=== PATIENT | female | born 1985 | race Caucasian/White ===

== ENCOUNTER → 2017-12-26 | Outpatient (CLI) | payer OTHER ==
[2017-12-26 10:59] LABS: ABSOLUTE EOSINOPHILS # (AUTO) 0.2 10^3/uL (0.0-0.6); ABSOLUTE LYMPHOCYTES (AUTO) 1.9 10^3/uL (0.5-4.7); ABSOLUTE MONOCYTES (AUTO) 0.6 10^3/uL (0.1-1.4); ABSOLUTE NEUT (AUTO) 3.4 10^3/uL (1.7-8.2); BASOPHILS % (AUTO) 0.8 % (0-2); EOSINOPHILS % (AUTO) 3.1 % (0-6); HEMATOCRIT 35.8 % (36.0-47.0); HEMOGLOBIN 12.1 g/dL (12.0-15.5); LYMPHOCYTES % (AUTO) 30.4 % (13-45); MEAN CORPUSCULAR HEMOGLOBIN 29.6 pg (27.0-33.4); MEAN CORPUSCULAR HGB CONC 33.8 g/dL (32.0-36.0); MEAN CORPUSCULAR VOLUME 88 fl (80-97); MONOCYTES % (AUTO) 9.6 % (3-13); PLATELET COUNT 227 10^3/uL (150-450); RED BLOOD COUNT 4.09 10^6/uL (3.72-5.28); RED CELL DISTRIBUTION WIDTH 13.6 % (11.5-14.0); SEGMENTED NEUTROPHILS % (AUTO) 56.1 % (42-78); TOTAL CELLS COUNTED % (AUTO) 100 %; WHITE BLOOD COUNT 6.1 10^3/uL (4.0-10.5)
[2017-12-26 11:20] LABS: ALANINE AMINOTRANSFERASE 40 U/L (9-52); ALBUMIN 4.2 g/dL (3.5-5.0); ALKALINE PHOSPHATASE 67 U/L (38-126); ANION GAP 9 (5-19); ASPARTATE AMINO TRANSFERASE 30 U/L (14-36); BILIRUBIN,DIRECT 0.2 mg/dL (0.0-0.4); BILIRUBIN,TOTAL 0.5 mg/dL (0.2-1.3); BLOOD UREA NITROGEN 7 mg/dL (7-20); CALCIUM 9.7 mg/dL (8.4-10.2); CARBON DIOXIDE 26 mmol/L (22-30); CHLORIDE 107 mmol/L (98-107); CHOLESTEROL 151.64 mg/dL (0-200); GLUCOSE 79 mg/dL (75-110); POTASSIUM 4.2 mmol/L (3.6-5.0); SODIUM 141.7 mmol/L (137-145); TOTAL PROTEIN 7.1 g/dL (6.3-8.2); TRIGLYCERIDES 49 mg/dL (<150)
[2017-12-26 11:31] LABS: DIRECT LDL 71 mg/dL (<100)
== END ==
LOC: CCC 09:08
DX: R00.0 Tachycardia, unspecified (principal); N92.4 Excessive bleeding in the premenopausal period
CPT/HCPCS: 36415; 80053; 80061; 83036; 84443; 85025

== ENCOUNTER 2018-10-29 07:27 | Emergency (ER) | payer SELFPAY ==
[2018-10-29 07:33] VITALS: BP 114/72
[2018-10-29 07:54] LABS: APPEARANCE,URINE CLOUDY; BILIRUBIN,URINE NEGATIVE (NEGATIVE); COLOR,URINE YELLOW; GLUCOSE, URINE NEGATIVE (NEGATIVE); KETONES,URINE NEGATIVE (NEGATIVE); LEUKOCYTE ESTERASE,URINE LARGE (NEGATIVE); NITRITE,URINE NEGATIVE (NEGATIVE); PROTEIN,URINE 30 mg/dL (NEGATIVE); URINE SPECIFIC GRAVITY 1.011; UROBILINOGEN,URINE NEGATIVE mg/dL (<2.0)
[2018-10-29] MEDS ORDERED: SULFAMETHOXAZOLE/TRIMETHOPRIM 800-160 MG TABLET PO ONE (08:06)
--- NOTE | 2018-10-29 08:17 | ER Document Report ---
ED General - General Chief Complaint: Urinary Problem Stated Complaint: URINATION PROBLEMS Time Seen by Provider: 10/29/18 08:04 Primary Care Provider: [facility] [NO LOCAL MD] - Follow up as needed Mode of Arrival: Ambulatory Information source: Patient, [facility] Records Notes: 32-year-old female with a history of SVT presents with dysuria, hematuria and in creased urinary frequency. Patient states that one week prior to arrival she was experiencing urinary frequency. She stated that she used Azo and cranberry juice and felt better. She states this morning she woke and noticed blood after urinating. Patient denies any fever, chills, nausea, vomiting, vaginal discharge, flank pain. TRAVEL OUTSIDE OF THE [place] IN LAST 30 DAYS: No - HPI Onset: This morning Onset/Duration: Sudden Quality of pain: Burning Severity: Mild Associated symptoms: denies: Chest pain, Fever, Nausea, Vomiting, Shortness of breath Exacerbated by: Denies Relieved by: Denies Similar symptoms previously: Yes Recently seen / treated by doctor: No - Related Data Allergies/Adverse Reactions: Penicillins Allergy (Verified 10/29/18 07:29) monostat Allergy (Uncoded 10/29/18 07:29) Past Medical History - General Information source: Patient - Social History Smoking Status: Unknown if Ever Smoked Chew tobacco use (# tins/day): No Frequency of alcohol use: None Drug Abuse: None Lives with: Family Family History: Reviewed & Not Pertinent Patient has suicidal ideation: No Patient has homicidal ideation: No Renal/ Medical History: Reports: Hx Kidney Stones. Denies: Hx Peritoneal Dialysis Past Surgical History: Reports: Hx Abdominal Surgery - HERNIA REPAIR, Hx Cholecystectomy, Hx Tubal Ligation Review of Systems - Review of Systems Notes: REVIEW OF SYSTEMS: CONSTITUTIONAL : Denies fever, chills, or sweats. Denies recent illness. Denies weight loss, recent hospitalizations. EENT: Denies visual changes, eye pain. Denies sore throat, oral lesions, difficulty swallowing. CARDIOVASCULAR: Denies chest pain. Denies palpitations. Denies lower extremity edema. RESPIRATORY: Denies cough. Denies shortness of breath, wheezing. GASTROINTESTINAL: Denies abdominal pain or distention. Denies nausea, vomiting, or diarrhea. Denies blood in vomitus, stools, or per rectum. Denies black, tarry stools. Denies constipation. GENITOURINARY: + difficulty urinating, painful urination, frequency, blood in urine, denies vaginal discharge. MUSCULOSKELETAL: Denies back or neck pain or stiffness. Denies joint pain or swelling. SKIN: Denies rash, lesions or sores. HEMATOLOGIC : Denies easy bruising or bleeding. LYMPHATIC: Denies swollen glands. NEUROLOGICAL: Denies confusion or altered mental status. Denies loss of consciousness. Denies dizziness or lightheadedness. Denies headache. Denies weakness or paralysis. Denies problems difficulty with ambulation, slurred speech. Denies sensory loss, numbness, or tingling. Denies seizures. PSYCHIATRIC: Denies anxiety or stress. Denies depression, suicidal ideation, or homicidal ideation. Denies visual or auditory hallucinations. Physical Exam - Vital signs Vitals: Temp Pulse Resp BP Pulse Ox 97.9 F 81 18 114/72 99 10/29/18 07:32 10/29/18 07:32 10/29/18 07:32 10/29/18 07:32 10/29/18 07:32 - Notes Notes: PHYSICAL EXAMINATION: GENERAL: Well-appearing, well-nourished and in no acute distress. HEAD: Atraumatic, normocephalic. EYES: Pupils equal round and reactive to light, extraocular movements intact, conjunctiva are normal. ENT: Nares patent, oropharynx clear without exudates. Moist mucous membranes. NECK: Normal range of motion, supple without lymphadenopathy LUNGS: Breath sounds clear to auscultation bilaterally and equal. No wheezes rales or rhonchi. HEART: Regular rate and rhythm without murmurs ABDOMEN: Soft, nontender, nondistended abdomen. No guarding, no rebound. No masses appreciated. No CVA tenderness Female : deferred Musculoskeletal: Normal range of motion, no pitting or edema. No cyanosis. NEUROLOGICAL: Cranial nerves grossly intact. Normal speech, normal gait. Normal sensory, motor exams PSYCH: Normal mood, normal affect. SKIN: Warm, Dry, normal turgor, no rashes or lesions noted. Course - Re-evaluation Re-evalutation: 10/29/18 09:40 Laboratory 10/29/18 07:33 Urine Color YELLOW Urine Appearance CLOUDY Urine pH 7.0 Ur Specific [place] 1.011 Urine Protein 30 H Urine Glucose (UA) NEGATIVE Urine Ketones NEGATIVE Urine Blood LARGE H Urine Nitrite NEGATIVE Urine Bilirubin NEGATIVE Urine Urobilinogen NEGATIVE Ur Leukocyte Esterase LARGE H Urine WBC (Auto) >182 Urine RBC (Auto) >182 Urine WBC Clumps MANY Squamous Epi Cells Auto 2 U Non-Squamous Epis Auto 2 Urine Mucus (Auto) OCC Urine Ascorbic Acid NEGATIVE Temp Pulse Resp BP Pulse Ox 97.9 F 81 18 114/72 99 10/29/18 07:32 10/29/18 07:32 10/29/18 07:32 10/29/18 07:32 10/29/18 07:32 Patient presents with symptoms consistent with an acute cystitis. Vitals wnl. No history of fever, flank pain, or constitution symptoms to suggest ascending infection at this time. Patient is well in appearance, tolerating oral intake without difficulty. No focal abdominal tenderness to suggest acute appendicitis, biliary pathology, acute pancreatitis, tubo-ovarian abscesses, or pelvic inflammatory disease. Patient will be started on antibiotics at this time. A culture has been sent. They will be discharged with return precautions and follow-up recommendations. - Vital Signs Vital signs: Temp Pulse Resp BP Pulse Ox 97.9 F 81 18 114/72 99 10/29/18 07:32 10/29/18 07:32 10/29/18 07:32 10/29/18 07:32 10/29/18 07:32 - Laboratory Laboratory results interpreted by me: 10/29/18 07:33 Urine Protein 30 H Urine Blood LARGE H Ur Leukocyte Esterase LARGE H Discharge - Discharge Clinical Impression: UTI (urinary tract infection) Qualifiers: Urinary tract infection type: site unspecified Hematuria presence: with hematuria Qualified Code(s): N39.0 - Urinary tract infection, site not specified Condition: Good Disposition: HOME, SELF-CARE Instructions: Urinary Tract Infection ([facility]) Additional Instructions: Your urine shows findings consistent with a urinary tract infection. Please take all the antibiotics as directed even if your symptoms have improved. Please follow-up with your primary care physician as needed. Return to emergency room if you develop fever >101F, persistent vomiting, become lethargic, have severe pain in your sides, or any other symptoms that are concerning to you. Prescriptions: Cephalexin Monohydrate [Keflex 500 mg Capsule] 500 mg PO Q8H 5 Days #15 capsule Sulfamethoxazole/Trimethoprim [Bactrim Ds Tablet] 1 each PO BID 7 Days #14 tablet Forms: Return to Work [facility] [NO LOCAL MD] - Follow up as needed
[2018-10-29] MEDS ORDERED: CEPHALEXIN 500 MG CAPSULE PO ONE (08:24)
== END 2018-10-29 08:30 | disposition home or self-care (01) ==
LOC: ER 07:27
DX: N39.0 Urinary tract infection, site not specified (principal); R31.0 Gross hematuria; Z87.442 Personal history of urinary calculi; Z88.0 Allergy status to penicillin; Z88.3 Allergy status to other anti-infective agents
CPT/HCPCS: 81001; 99283

== ENCOUNTER 2019-01-06 08:37 | Emergency (ER) | payer SELFPAY ==
[2019-01-06] MEDS ORDERED: NORMAL SALINE 1000 ML 1,000 ML IV ONE (09:27)
--- NOTE | 2019-01-06 09:27 | ER Document Report ---
ED General - General Chief Complaint: Urinary Problem Stated Complaint: POSSIBLE UTI Time Seen by Provider: 01/06/19 09:21 Primary Care Provider: [facility] [Provider Group] - Follow up as needed TRAVEL OUTSIDE OF THE [place] IN LAST 30 DAYS: No - HPI Patient complains to provider of: dysurea Notes: Pleasant 33-year-old female presents with signs and symptoms concerning for urinary tract infection including dysuria burning sensation 8/10 without radiation nothing makes it better or worse. Patient denies nausea vomiting or other symptoms. Patient has been treated with 3 courses of antibiotics for the last 2 months without improvement in symptoms. Denies fever chills but now has some aching back pain intermittently. Was told she had kidney stones at one point but she is not sure if she passed them or not. Patient is concerned this is been going on for so long. - Related Data Allergies/Adverse Reactions: tioconazole [Tioconazole] Allergy (Intermediate, Verified 01/06/19 08:38) Skin Redness Penicillins Allergy (Verified 01/06/19 08:38) nitrofurantoin [From Macrobid] Adverse Reaction (Verified 01/06/19 08:38) Nausea nitrofurantoin macrocrystalline [From Macrobid] Adverse Reaction (Verified 01/06/19 08:38) Nausea monostat Allergy (Uncoded 10/29/18 11:22) Past Medical History - Social History Smoking Status: Unknown if Ever Smoked Family History: Malignancy, CAD, DM, Hyperlipidemia, Hypertension, Reviewed & Not Pertinent - Past Medical History Cardiac Medical History: Denies: Hx Heart Attack, Hx Hypertension Pulmonary Medical History: Reports: Hx Bronchitis - chronic Denies: Hx Asthma Neurological Medical History: Denies: Hx Cerebrovascular Accident, Hx Seizures Endocrine Medical History: Reports: Hx Diabetes Mellitus Type 2 - borderline Renal/ Medical History: Reports: Hx Kidney Stones. Denies: Hx Peritoneal Dialysis GI Medical History: Reports: Hx Hiatal Hernia. Denies: Hx Hepatitis, Hx Ulcer Psychiatric Medical History: Reports: Hx Depression - POST Infectious Medical History: Denies: Hx Hepatitis Past Surgical History: Reports: Hx Abdominal Surgery - HERNIA REPAIR, Hx Cardiac Surgery - ABLASION X 2, Hx Cholecystectomy, Hx Tubal Ligation, Hx Umbilical Hernia. Denies: Hx Mastectomy, Hx Open Heart Surgery, Hx Pacemaker - Immunizations Immunizations up to date: Yes Hx Diphtheria, Pertussis, Tetanus Vaccination: No - 2010 Hx Pneumococcal Vaccination: 04/21/12 Review of Systems - Review of Systems Notes: REVIEW OF SYSTEMS: CONSTITUTIONAL: -fevers, -chills EENT: -eye pain, -difficulty swallowing, -nasal congestion CARDIOVASCULAR: -chest pain, -syncope. RESPIRATORY: -cough, -SOB GASTROINTESTINAL: -abdominal pain, -nausea, -vomiting, -diarrhea GENITOURINARY: positive dysuria, -hematuria MUSCULOSKELETAL: -back pain, -neck pain SKIN: -rash or skin lesions. HEMATOLOGIC: -easy bruising or bleeding. LYMPHATIC: -swollen, enlarged glands. NEUROLOGICAL: -altered mental status or loss of consciousness, -headache, - neurologic symptoms PSYCHIATRIC: -anxiety, -depression. ALL OTHER SYSTEMS REVIEWED AND NEGATIVE. Physical Exam - Vital signs Vitals: Temp Pulse Resp BP Pulse Ox 99.5 F 72 16 111/75 100 01/06/19 09:36 01/06/19 09:36 01/06/19 09:36 01/06/19 09:36 01/06/19 09:36 - Notes Notes: PHYSICAL EXAMINATION: GENERAL: Well-appearing, well-nourished and in no acute distress. HEAD: Atraumatic, normocephalic. EYES: Pupils equal round and reactive to light, extraocular movements intact, sclera anicteric, conjunctiva are normal. ENT: nares patent, oropharynx clear without exudates. Moist mucous membranes. NECK: Normal range of motion, supple without lymphadenopathy LUNGS: Breath sounds clear to auscultation bilaterally and equal. No wheezes rales or rhonchi. HEART: Regular rate and rhythm without murmurs ABDOMEN: Soft, nontender, normoactive bowel sounds. No guarding, no rebound. No masses appreciated. EXTREMITIES: Normal range of motion, no pitting or edema. No cyanosis. NEUROLOGICAL: Cranial nerves grossly intact. Normal speech, normal gait. Normal sensory and motor exams. PSYCH: Normal mood, normal affect. SKIN: Warm, Dry, normal turgor, no rashes or lesions noted. Course - Re-evaluation Re-evalutation: 01/06/19 09:29 Well-appearing female stable vital signs within normal limits no acute distress. Presents with signs and symptoms concerning of urinary tract infection. This is been a protracted illness. Will initiate extensive lab work-up and CAT scan. 01/06/19 11:19 Well-appearing female no acute distress stable vital signs within normal limits. Extensive lab work-up unremarkable, no signs of infection, urine shows a culture and GC screen. CT abdomen pelvis performed shows no acute intra- abdominal process all findings. Patient will be discharged home improved follow-up PCP. given strict return precautions - Vital Signs Vital signs: Temp Pulse Resp BP Pulse Ox 98.1 F 63 18 95/53 L 100 01/06/19 11:32 01/06/19 11:32 01/06/19 11:32 01/06/19 11:32 01/06/19 11:32 - Laboratory Result Diagrams: 01/06/19 09:45 01/06/19 09:45 Laboratory results interpreted by me: 01/06/19 09:07 Urine Urobilinogen 2.0 H Ur Leukocyte Esterase TRACE H Discharge - Discharge Clinical Impression: Flank pain Condition: Stable Disposition: HOME, SELF-CARE Instructions: Abdominal Pain ([facility]) Additional Instructions: Call PCP tomorrow Referrals: [facility] [Provider Group] - Follow up as needed
[2019-01-06 09:36] LABS: APPEARANCE,URINE SLIGHTLY-CLOUDY; BILIRUBIN,URINE NEGATIVE (NEGATIVE); COLOR,URINE YELLOW; GLUCOSE, URINE NEGATIVE (NEGATIVE); KETONES,URINE NEGATIVE (NEGATIVE); LEUKOCYTE ESTERASE,URINE TRACE (NEGATIVE); NITRITE,URINE NEGATIVE (NEGATIVE); PROTEIN,URINE NEGATIVE (NEGATIVE); URINE SPECIFIC GRAVITY 1.011
[2019-01-06] MEDS ORDERED: ACETAMINOPHEN 325 MG TABLET PO ONE (10:09)
[2019-01-06 10:11] LABS: ABSOLUTE EOSINOPHILS # (AUTO) 0.1 10^3/uL (0.0-0.6); ABSOLUTE LYMPHOCYTES (AUTO) 1.9 10^3/uL (0.5-4.7); ABSOLUTE MONOCYTES (AUTO) 0.5 10^3/uL (0.1-1.4); ABSOLUTE NEUT (AUTO) 4.5 10^3/uL (1.7-8.2); BASOPHILS % (AUTO) 0.6 % (0-2); EOSINOPHILS % (AUTO) 0.9 % (0-6); HEMATOCRIT 38.5 % (36.0-47.0); HEMOGLOBIN 13.2 g/dL (12.0-15.5); LYMPHOCYTES % (AUTO) 27.6 % (13-45); MEAN CORPUSCULAR HEMOGLOBIN 29.4 pg (27.0-33.4); MEAN CORPUSCULAR HGB CONC 34.1 g/dL (32.0-36.0); MEAN CORPUSCULAR VOLUME 86 fl (80-97); MONOCYTES % (AUTO) 6.5 % (3-13); PLATELET COUNT 265 10^3/uL (150-450); RED BLOOD COUNT 4.47 10^6/uL (3.72-5.28); RED CELL DISTRIBUTION WIDTH 13.7 % (11.5-14.0); SEGMENTED NEUTROPHILS % (AUTO) 64.4 % (42-78); TOTAL CELLS COUNTED % (AUTO) 100 %
[2019-01-06 10:23] LABS: ANION GAP 8 (5-19); BLOOD UREA NITROGEN 7 mg/dL (7-20); CALCIUM 9.8 mg/dL (8.4-10.2); CARBON DIOXIDE 26 mmol/L (22-30); CHLORIDE 104 mmol/L (98-107); GLUCOSE 81 mg/dL (75-110); POTASSIUM 3.9 mmol/L (3.6-5.0)
--- NOTE | 2019-01-06 10:59 | RADIOLOGY REPORT (SQ) ---
EXAM DESCRIPTION: CT ABD/PELVIS WITH IV ONLY COMPLETED DATE/TIME: 01/06/2019 10:37 am REASON FOR STUDY: flank pain, abdominal pain COMPARISON: 11/09/2018 TECHNIQUE: CT scan of the abdomen and pelvis performed using helical scanning technique with dynamic intravenous contrast injection. No oral contrast. Images reviewed with lung, soft tissue, and bone windows. Reconstructed coronal and sagittal MPR images reviewed. Delayed images for evaluation of the urinary system also acquired. All images stored on PACS. All CT scanners at this facility use dose modulation, iterative reconstruction, and/or weight based d osing when appropriate to reduce radiation dose to as low as reasonably achievable (ALARA). [facility]: Dose Right [facility]: CareDose [facility]: Dose Right [facility]: Teradose 4D [facility]: SnapMyAd CONTRAST TYPE AND DOSE: contrast/concentration: Isovue 350.00 mg/ml; Total Contrast Delivered: 78.0 ml; Total Saline Delivered: 61.8 ml RENAL FUNCTION: None required. The patient is less than 50 years old. RADIATION DOSE: CT Rad equipment meets quality standard of care and radiation dose reduction techniq ues were employed. CTDIvol: 7.2 - 10.0 mGy. DLP: 897 mGy-cm.. LIMITATIONS: None. FINDINGS: LOWER CHEST: No significant findings. No nodules or infiltrates. LIVER: Normal size. No masses. No dilated ducts. SPLEEN: Normal size. No focal lesions. PANCREAS: No masses. No significant calcifications. No adjacent inflammation or peripancreatic fluid collections. Pancreatic duct not dilated. GALLBLADDER: Surgically absent. ADRENAL GLANDS: No significant masses or asymmetry. RIGHT KIDNEY AND URETER: No solid masses. No significant calcifications. No hydronephrosis or hyd roureter. LEFT KIDNEY AND URETER: No solid masses. No significant calcifications. No hydronephrosis or hydr oureter. AORTA AND VESSELS: No aneurysm. No dissection. Renal arteries, SMA, celiac without stenosis. RETROPERITONEUM: No retroperitoneal adenopathy, hemorrhage or masses. BOWEL AND PERITONEAL CAVITY: No masses or inflammatory changes. No free fluid or peritoneal masses. APPENDIX: Normal. PELVIS: No mass. No free fluid. Normal bladder. ABDOMINAL WALL: No masses. No hernias. BONES: No significant or acute findings. OTHER: No other significant finding. IMPRESSION: NO SIGNIFICANT OR ACUTE FINDING IN THE ABDOMEN OR PELVIS ON CT SCAN WITH IV CONTRAST. TECHNICAL DOCUMENTATION: JOB ID: [id number] Quality ID # [id number]: Final reports with documentation of one or more dose reduction techniques (e.g., Au tomated exposure control, adjustment of the mA and/or kV according to patient size, use of iterative reconstruction technique) 2010 [employer]- All Rights Reserved Reading location - IP/workstation name: [email or web address]
[2019-01-06 11:35] VITALS: BP 95/53
[2019-01-06 12:53] LABS: CHLAM PCR NOT DETECTED (NOT DETECT)
== END 2019-01-06 11:48 | disposition home or self-care (01) ==
LOC: ER 08:37
DX: R10.9 Unspecified abdominal pain (principal); R39.198 Other difficulties with micturition; R30.0 Dysuria; E11.9 Type 2 diabetes mellitus without complications
CPT/HCPCS: 36415; 85025; 81025; 80048; 81001; 87491; 87591; 74177; J7030; 87086

== ENCOUNTER 2019-02-09 08:31 | Emergency (ER) | payer SELFPAY ==
[2019-02-09 08:53] VITALS: BP 103/72
[2019-02-09] MEDS ORDERED: PREDNISONE 20 MG TABLET PO ONE (09:20)
[2019-02-09] MEDS ORDERED: FAMOTIDINE 20 MG TABLET PO ONE (09:20)
[2019-02-09] MEDS ORDERED: DIPHENHYDRAMINE HCL 50 MG CAPSULE PO ONE (09:20)
--- NOTE | 2019-02-09 09:23 | ER Document Report ---
HPI - HPI Time Seen by Provider: 02/09/19 09:11 Notes: Patient is a 33-year-old female presenting to the emergency department with concerns for possible allergic reaction. Patient reports 2 days ago she broke out in a fine rash that is very itchy. She states she has had a similar episode happened in the past at which time she had to be treated with epinephrine at [facility]. She states that this time it is not as severe, she has no throat swelling or difficulty swallowing. She just reports that she has been taking Benadryl without relief. She does report taking some leftover prednisone that she had for her sciatic pain, she does not know what dose she took. She did not take that today. - REPRODUCTIVE Reproductive: DENIES: : Past Medical History - General Information source: Patient - Social History Smoking Status: Never Smoker Frequency of alcohol use: None Drug Abuse: None Family History: Malignancy, CAD, DM, Hyperlipidemia, Hypertension, Reviewed & Not Pertinent - Past Medical History Cardiac Medical History: Denies: Hx Heart Attack, Hx Hypertension Pulmonary Medical History: Reports: Hx Bronchitis - chronic Denies: Hx Asthma Neurological Medical History: Denies: Hx Cerebrovascular Accident, Hx Seizures Endocrine Medical History: Reports: Hx Diabetes Mellitus Type 2 - borderline Renal/ Medical History: Reports: Hx Kidney Stones. Denies: Hx Peritoneal Dialysis GI Medical History: Reports: Hx Hiatal Hernia. Denies: Hx Hepatitis, Hx Ulcer Psychiatric Medical History: Reports: Hx Depression - POST Infectious Medical History: Denies: Hx Hepatitis Past Surgical History: Reports: Hx Abdominal Surgery - HERNIA REPAIR, Hx Cardiac Surgery - ABLASION X 2, Hx Cholecystectomy, Hx Tubal Ligation, Hx Umbilical Hernia. Denies: Hx Mastectomy, Hx Open Heart Surgery, Hx Pacemaker - Immunizations Immunizations up to date: Yes Hx Diphtheria, Pertussis, Tetanus Vaccination: No - 2010 Hx Pneumococcal Vaccination: 04/21/12 Vertical Provider Document - CONSTITUTIONAL Notes: PHYSICAL EXAMINATION: GENERAL: Well-appearing, well-nourished and in no acute distress. HEAD: Atraumatic, normocephalic. EYES: Pupils equal round extraocular movements intact, conjunctiva are normal. ENT: Nares patent, oropharynx clear, airway patent. NECK: Normal range of motion LUNGS: No respiratory distress, lung sounds clear and equal bilaterally. Musculoskeletal: Normal range of motion NEUROLOGICAL: Normal speech, normal gait. PSYCH: Normal mood, normal affect. SKIN: Fine lacy rash to patient's bilateral arms, bilateral legs and neck. No obvious hives. - INFECTION CONTROL TRAVEL OUTSIDE OF THE [place] IN LAST 30 DAYS: No Course - Re-evaluation Re-evalutation: Patient presenting with possible mild allergic reaction. No anaphylaxis. Will give patient a dose of Pepcid, prednisone and Benadryl, will monitor to ensure that this does not rapidly progressed with plans to discharge home with prescriptions for Pepcid, prednisone and an EpiPen this patient reports she does not have one. - Vital Signs Vital signs: Temp Pulse Resp BP Pulse Ox 98.3 F 72 16 103/72 100 02/09/19 08:51 02/09/19 08:51 02/09/19 08:51 02/09/19 08:51 02/09/19 08:51 Discharge - Discharge Clinical Impression: Allergic reaction Qualifiers: Encounter type: initial encounter Qualified Code(s): T78.40XA - Allergy, unspecified, initial encounter Condition: Stable Disposition: HOME, SELF-CARE Additional Instructions: As discussed, please follow-up with your primary caregivers non medical to discuss allergy testing. Take medications as prescribed. You may also take Benadryl 25 to 50 mg every 6 hours. Please return to the emergency department with any new or worsening symptoms to include difficulty breathing, shortness of breath or worsening despite taking appropriate medications. Forms: Return to Work
== END 2019-02-09 09:45 | disposition home or self-care (01) ==
LOC: ER 08:31
DX: T78.40XA Allergy, unspecified, initial encounter (principal); R21 Rash and other nonspecific skin eruption; E11.9 Type 2 diabetes mellitus without complications
CPT/HCPCS: 99282; J7512

== ENCOUNTER 2019-12-14 13:44 | Emergency (ER) | payer SELFPAY ==
[2019-12-14 13:51] VITALS: BP 103/68
[2019-12-14] MEDS ORDERED: IBUPROFEN 800 MG TABLET PO ONE (14:37)
[2019-12-14] MEDS ORDERED: DOXYCYCLINE HYCLATE 100 MG TABLET PO ONE (14:37)
[2019-12-14] MEDS ORDERED: DIPH/PERTUSS(ACELL)/TETANUS VAC/PF 0.5 ML SYR (>=10YO) IM ONE (14:37)
--- NOTE | 2019-12-14 14:43 | ER Document Report ---
ED Extremity Problem, Lower - General Chief Complaint: Wound Infection Stated Complaint: CAT SCRATCHES/RIGHT LEG Time Seen by Provider: 12/14/19 14:37 Mode of Arrival: Ambulatory Information source: Patient Notes: 34-year-old female presented to ED for complaint of a cat scratch to the right posterior leg. She states it was her cat and the cat scratched her yesterday. There is very minimal redness to the area. She is allergic to penicillin. Patient is alert oriented respirations regular nonlabored speaking in full sentences. She is afebrile at this time. REVIEW OF SYSTEMS: CONSTITUTIONAL : Denies fever, chills, or sweats. Denies recent illness. EENT: Denies eye, ear, throat, or mouth pain or symptoms. Denies nasal or sinus congestion. CARDIOVASCULAR: Denies chest pain. RESPIRATORY: Denies cough, cold, or chest congestion. Denies shortness of breath, difficulty breathing, or wheezing. GASTROINTESTINAL: Denies abdominal pain. Denies nausea, vomiting, or diarrhea. Denies constipation. Last BM: GENITOURINARY: Denies difficulty urinating, painful urination, burning, frequency, or blood in urine. FEMALE GENITOURINARY: Denies vaginal bleeding, abnormal or irregular periods. LMP: MUSCULOSKELETAL: Denies neck or back pain swelling. Red swollen tender area to the back of the right thigh from a cat scratch SKIN: Red and inflamed cat scratch to the lower right leg HEMATOLOGIC : Denies easy bruising or bleeding. LYMPHATIC: Denies swollen, enlarged glands. NEUROLOGICAL: Denies altered mental status or loss of consciousness. Denies headache. Denies weakness or paralysis or loss of use of either side. Denies problems with gait or speech. Denies sensory or motor loss. PSYCHIATRIC: Denies anxiety or stress or depression. ALL OTHER SYSTEMS REVIEWED AND NEGATIVE. VITAL SIGNS: Within normal limits. GENERAL: No acute distress, non-toxic appearance. HEAD: Normal with no signs of head trauma. EYES: PERRLA, EOMI, conjunctiva normal, no discharge. EARS: Hearing grossly intact. NOSE: Normal. THROAT: Oropharynx is normal. NECK: Normal range of motion, no tenderness, supple, no lymphadenopathy, No adenopathy, no JVD. CHEST: Clear breath sounds bilaterally. No wheezes, rales, or rhonchi. CARDIAC: Regular rate and rhythm. S1 and S2, without murmurs, gallops, or rubs. VASCULAR: No Edema. Peripheral pulses normal and equal in all extremities. ABDOMEN: Normal and soft with no tenderness, no masses or pulsatile masses. GASTROINTESTINAL: Bowel sounds normal GENITOURINARY: Normal, No tenderness LYMPATHTIC: No lymphadenopathy noted. MUSCULOSKELETAL: Good range of motion of all major joints. Extremities without clubbing, cyanosis or edema. NEUROLOGICAL: Alert and oriented x 3. No focal sensory or strength deficits. Speech normal. Follows commands appropriately. PSYCHIATRIC: Normal Affect, judgement and mood. SKIN: Infected cat scratch to the back of the right calf 1.5 cm. Patient will be treated with doxycycline and ibuprofen in the emergency room. She also get a tetanus immunization at this time. She will be discharged home prescription for doxycycline twice daily x10 days. TRAVEL OUTSIDE OF THE [place] IN LAST 30 DAYS: No - HPI Patient complains to provider of: Injury, Pain, Swelling Location: Leg - Related Data Allergies/Adverse Reactions: tioconazole [Tioconazole] Allergy (Intermediate, Verified 02/09/19 09:11) Skin Redness Penicillins Allergy (Verified 02/09/19 09:11) nitrofurantoin [From Macrobid] Adverse Reaction (Verified 02/09/19 09:11) Nausea nitrofurantoin macrocrystalline [From Macrobid] Adverse Reaction (Verified 02/09/19 09:11) Nausea monostat Allergy (Uncoded 02/09/19 09:11) Past Medical History - Social History Smoking Status: Never Smoker Frequency of alcohol use: Occasional Drug Abuse: None Family History: Malignancy, CAD, DM, Hyperlipidemia, Hypertension, Reviewed & Not Pertinent - Past Medical History Cardiac Medical History: Denies: Hx Heart Attack, Hx Hypertension Pulmonary Medical History: Reports: Hx Bronchitis - chronic Denies: Hx Asthma Neurological Medical History: Denies: Hx Cerebrovascular Accident, Hx Seizures Endocrine Medical History: Reports: Hx Diabetes Mellitus Type 2 - borderline Renal/ Medical History: Reports: Hx Kidney Stones. Denies: Hx Peritoneal Dialysis GI Medical History: Reports: Hx Hiatal Hernia. Denies: Hx Hepatitis, Hx Ulcer Psychiatric Medical History: Reports: Hx Depression - POST Infectious Medical History: Denies: Hx Hepatitis Past Surgical History: Reports: Hx Abdominal Surgery - HERNIA REPAIR, Hx Cardiac Surgery - ABLASION X 2, Hx Cholecystectomy, Hx Tubal Ligation, Hx Umbilical Hernia. Denies: Hx Mastectomy, Hx Open Heart Surgery, Hx Pacemaker - Immunizations Immunizations up to date: Yes Hx Diphtheria, Pertussis, Tetanus Vaccination: No - 2010 Hx Pneumococcal Vaccination: 04/21/12 Physical Exam - Vital signs Vitals: Temp Pulse Resp BP Pulse Ox 98.3 F 79 14 103/68 99 12/14/19 13:50 12/14/19 13:50 12/14/19 13:50 12/14/19 13:50 12/14/19 13:50 Course - Re-evaluation Re-evalutation: 12/14/19 21:50 Wound was cleaned with surgical scrub. Patient was given a bolus scrub to clean her wound was she was given instructions for cleaning and dressing the wound and antibiotics for the infected wound. Patient verbalized understanding and agreement with treatment plan patient was discharged home. - Vital Signs Vital signs: Temp Pulse Resp BP Pulse Ox 98.3 F 79 14 103/68 99 12/14/19 13:50 12/14/19 13:50 12/14/19 13:50 12/14/19 13:50 12/14/19 13:50 Discharge - Discharge Clinical Impression: Cat scratch right calf Condition: Stable Disposition: HOME, SELF-CARE Additional Instructions: You were seen today for an infected cat scratch to the right calf. SOAP CLEANSING: Gently wash the wound daily using a mild soap (like Ivory, Phisoderm, Neutrogena). Use warm water, rubbing gently until all debris, ooze, and crusting have been washed from the wound. Allow to dry briefly (about 10 minutes) after cleaning. Repeat this cleansing at least three times a day for the first two days and then once or twice a day. ANTIBIOTIC OINTMENT PROTECTION: Your wounds are such that dressing them is not practical or optional. After cleansing, you should apply a thin coating of antibiotic ointment (Bacitracin, not Neosporin) to the wounds at least three times daily. This lessens infection risk, and may decrease the amount of scarring. Use a q-tip or dull butter knife, not your finger, to apply this ointment. Any debris or ooze which builds up in the ointment should be gently rubbed off with a sterile gauze pad. Harder crusting may need to be gently scrubbed off with a clean wash cloth with soap and warm water, perhaps applying a warm, wet wash cloth to the wound for ten minutes first. Development of redness, severe itching, or blistering may mean allergy to the ointment. See the doctor. TETANUS IMMUNIZATION GIVEN: You have been given an immunization against tetanus. Please record this in your records. In general, a booster is needed only once every 10 years. The tetanus shot protects against tetanus or "lockjaw," which is a complication of certain wound infections (the tetanus shot cannot protect against the actual infection). The immunization site may become warm and red due to local reaction. If this occurs, apply warm compresses and take aspirin or ibuprofen to reduce inflammation and discomfort. Return for evaluation if the reaction becomes severe. Epsom Salt Soaks Soak the wound area in a container of warm epsom salt water. If you can't get the wound area into a bucket or ho, use a folded towel soaked in the epsom salt solution and apply to the area. Use clean hot tap water (about the temperature of a very warm bath), mixing in about one (1) teaspoon for every pint of water. Two gallon --> 16 teaspoons Epsom Salts One gallon --> 8 teaspoons Epsom Salts Two quarts --> 4 teaspoons Epsom Salts One quart --> 2 teaspoons Epsom Salts Soak the wound for about 20 minutes while gently moving it around in the water. Repeat this four (4) times a day. Doxycycline Doxycycline (Vibramycin, Doryx) is an antibiotic of the tetracycline family. This type of drug is useful for infections of the respiratory tract and genital tract, and is sometimes used for intestinal infections. Unlike most tetracyclines, doxycycline can be taken with food. It is longer acting, and (usually) less prone to side effects than regular tetracycline. Tetracycline antibiotics can stain immature teeth and SHOULD NOT BE TAKEN BY CHILDREN, NURSING MOTHERS, OR WOMEN. Tetracyclines can make you more prone to sunburn. Abdominal cramping, nausea, and diarrhea are occasional side effects. Women may experience vaginal yeast infections. Call the doctor at once if you develop hives, itching, shortness of breath, or lightheadedness. FOLLOW-UP CARE: If you have been referred to a physician for follow-up care, call the physicians office for an appointment as you were instructed or within the next two days. If you experience worsening or a significant change in your symptoms, notify the physician immediately or return to the Emergency Department at any time for re-evaluation. Prescriptions: Doxycycline Monohydrate 100 mg PO BID #20 capsule Forms: Return to Work
== END 2019-12-14 14:52 | disposition home or self-care (01) ==
LOC: ER 13:44
DX: S80.811A Abrasion, right lower leg, initial encounter (principal); L08.9 Local infection of the skin and subcutaneous tissue, unspecified; W55.03XA Scratched by cat, initial encounter; Z23 Encounter for immunization; Z88.0 Allergy status to penicillin; Z88.3 Allergy status to other anti-infective agents
CPT/HCPCS: 90471; 90715; 99283